=== PATIENT | male | born 1975 | race Caucasian/White ===

== ENCOUNTER 2016-08-29 18:16 | Emergency (ER) | payer SELFPAY ==
[2016-08-29 18:16] VITALS: BMI 24.7
[2016-08-29 19:00] VITALS: TEMP 98
[2016-08-29 19:20] LABS: AUTOMATED BASOPHIL 1.2 % (0-2); AUTOMATED LYMPH 27.3 % (17-44); AUTOMATED MONOCYTE 7.1 % (3-10); AUTOMATED NEUTROPHIL 61.4 % (45-76); MPV 8.5 fL (7.4-10.4)
[2016-08-29 19:23] LABS: LEUKOCYTES/URINE NEG (NEGATIVE); NITRITE/URINE NEG (NEGATIVE); URINE OCCULT BLOOD NEG (NEG/TRACE)
[2016-08-29 19:31] LABS: BLOOD UREA NITROGEN 15 MG/DL (9-20); CALCIUM 9.7 MG/DL (8.4-10.2); CALCULATED OSMOLALITY 280 MOs/Kg (270-290); CHLORIDE 104 mEq/L (98-107); GLUCOSE 101 MG/DL (70-99); SODIUM LEVEL 145 mEq/L (137-146); TOTAL PROTEIN 7.5 G/DL (6.3-8.2)
[2016-08-29 19:38] LABS: PARTIAL THROMB. TIME 22.5 SEC (22-35)
--- NOTE | 2016-08-29 21:40 | DIRPT ---
CLINICAL DATA: Chest pain. Presumed cardiac. Shortness of breath and cough EXAM: PORTABLE CHEST 1 VIEW COMPARISON: PA and lateral views 08/07/2016 FINDINGS: Hyperinflation and emphysematous change with chain sutures in both lung apices. Scattered regions of scarring bilaterally. Small right pleural effusion persists, and decreased left pleural effusion. Cardiomediastinal contours are unchanged, heart is normal in size. No pulmonary edema, confluent airspace disease, or pneumothorax. No acute osseous abnormalities. IMPRESSION: 1. Persistent right pleural effusion. Diminished left pleural effusion. 2. Emphysema with multifocal scarring. Electronically Signed By: Megan Anand M.D. On: 08/29/2016 21:37
[2016-08-29] MEDS ORDERED: ALBUTEROL 6.7 GM MDI INH ONE (21:57)
--- NOTE | 2016-08-29 21:59 | EDPRACDOC ---
- General Information Chief Complaint: Flu-Like Symptoms Stated Complaint: DIFFICULTY BREATHING Time Seen by Provider: 08/29/16 21:49 Information Source: Patient Mode Of Arrival: Car Home Medications: Home Medications Acetaminophen with Codeine [TYLENOL WITH CODEINE; [employer] with Codeine] 5 ml PO Q4-6H PRN #120 ml 08/07/16 Amoxicillin Trihydrate [Amoxicillin] 500 mg PO TID #30 tab 08/07/16 Prednisone [Deltasone, Orasone] 2 tabs PO DAILY #20 tab 08/07/16 Albuterol Sulfate [Proair Hfa] 2 puff INH Q2H PRN #1 inhaler 08/29/16 Benzonatate [Tessalon Perle] 100 mg PO TID PRN #20 capsule 08/29/16 Allergies/Adverse Reactions: Allergies Allergy/AdvReac Type Severity Reaction Status Date / Time No Known Allergies Allergy Verified 08/07/16 19:04 - History of Present Illness HPI: PT PRESENTS WITH PERSISTENT DYSPNEA FOR THE LAST FEW WEEKS SINCE TREATMENT FOR PNEUMONIA AND BRONCHITIS. HE HAS DECREASED HIS SMOKING BUT NOT STOP. Relevant History: Reports: COPD Cough: Reports: Green Rhinorrhea: Reports: Clear SOB Worsens with: Reports: Exertion SOB Improves with: Reports: Rest Associated Signs and symptoms: Reports: Cough, Nasal Symptoms. Denies: Fever, Vomiting ED Past Medical History - History Reviewed Yes Nurses notes reviewed and agree except as marked - Patient Medical History Cardiac History: Reports: Hypertension Psychological History: Denies: Depression - Social Medical History Smoking Status: Heavy tobacco smoker (5 or more cigarettes/day or daily pipe/ cigar) Lives In: Home EDM Review of Systems - Review of Systems ROS Negative Except as Marked: Yes All systems reviewed and were negative except as marked Constitutional: Fatigue, Weakness. negative: Fever Nose: Congestion Respiratory: Cough, Shortness of Breath, Wheezing, Sputum - Physical Exam Constitutional: Alert Oriented to: Time, Person, Place Last recorded Vital Signs: Last Vital Signs Temp 98.0 F 08/29/16 18:56 Pulse 77 08/29/16 21:16 Resp 18 08/29/16 21:16 BP 141/87 08/29/16 21:16 Pulse Ox 97 08/29/16 21:16 Oxygen Pulse Oxygen Saturation 97 O2 Device Room Air Oxygen Flow Rate Fraction of Inspired Oxygen ( FIO2) - HEENT Head: negative: Deformity, Laceration Eye Exam: negative: Conjunctival Injection, Pale Conjunctiva Oropharynx: negative: Membranes Dry Nose: Congestion Neck: negative: Limited ROM - Respiratory/Cardiovascular Respiratory: Normal - CTA. negative: Accessory Muscle Use, Diminished, Tachypnea Cardiovascular: negative: Bradycardia, Tachycardia, Irregular - Musculoskeletal Extremities: Radial Pulse (PALPABLE) - Integumentary Skin: Warm, Dry. negative: Rash - Neurologic Memory Impaired: Normal Motor Function: Normal Mood Description: Anxious, Appropriate Thought: Coherent Perception: Normal ED SOB MDM - Results Result Diagrams: 08/29/16 19:06 08/29/16 19:06 Results: WBC 8.4 xk/uL (3.8-10.8) 08/29/16 19:06 RBC 5.11 xM/uL (4.70-6.10) 08/29/16 19:06 Hgb 15.4 g/dL (14.0-18.0) 08/29/16 19:06 Hct 44.7 % (42-52) 08/29/16 19:06 MCV 87 fL (80-94) 08/29/16 19:06 MCH 30.1 pg (27-32) 08/29/16 19:06 MCHC 34.4 g/dl (33-36) 08/29/16 19:06 RDW 13.3 % (11.5-14.5) 08/29/16 19:06 Plt Count 182 xk/uL (130-400) 08/29/16 19:06 MPV 8.5 fL (7.4-10.4) 08/29/16 19:06 Neut % (Auto) 61.4 % (45-76) 08/29/16 19:06 Lymph % (Auto) 27.3 % (17-44) 08/29/16 19:06 [place] % (Auto) 7.1 % (3-10) 08/29/16 19:06 Eos % (Auto) 3.0 % (0-5) 08/29/16 19:06 Baso % (Auto) 1.2 % (0-2) 08/29/16 19:06 Absolute Neuts (auto) 5.12 xk/uL (1.7-8.2) 08/29/16 19:06 Absolute Lymphs (auto) 2.27 xk/uL (0.65-4.75) 08/29/16 19:06 PT 10.1 SEC (9.2-11.2) 08/29/16 19:06 INR 1.0 08/29/16 19:06 APTT 22.5 SEC (22-35) 08/29/16 19:06 Sodium 145 mEq/L (137-146) 08/29/16 19:06 Potassium 3.8 mEq/L (3.5-5.1) 08/29/16 19:06 Chloride 104 mEq/L (98-107) 08/29/16 19:06 Carbon Dioxide 27 mMOL/L (22-33) 08/29/16 19:06 Anion Gap 18 mEq/L (8-16) H 08/29/16 19:06 BUN 15 MG/DL (9-20) 08/29/16 19:06 Creatinine 0.90 MG/DL (0.66-1.25) 08/29/16 19:06 Estimated GFR (MDRD) > 60 mL/min (>=60) 08/29/16 19:06 Glucose 101 MG/DL (70-99) H 08/29/16 19:06 Calculated Osmolality 280 MOs/Kg (270-290) 08/29/16 19:06 Calcium 9.7 MG/DL (8.4-10.2) 08/29/16 19:06 Total Bilirubin 0.8 MG/DL (0.2-1.3) 08/29/16 19:06 AST 42 IU/L (17-59) 08/29/16 19:06 ALT 53 IU/L (21-72) 08/29/16 19:06 Alkaline Phosphatase 88 IU/L (38-126) 08/29/16 19:06 Troponin I < 0.01 ng/mL (<.04) 08/29/16 19:06 Ifx-[id number]-[id number] Pept 45 pg/mL (0-450) 08/29/16 19:06 Total Protein 7.5 G/DL (6.3-8.2) 08/29/16 19:06 Albumin 4.4 G/DL (3.5-5.0) 08/29/16 19:06 Urine Color Yellow 08/29/16 19:06 Urine Clarity Clear 08/29/16 19:06 Urine pH 5.0 (5.0-8.0) 08/29/16 19:06 Ur Specific [place] 1.030 (1.003-1.035) 08/29/16 19:06 Urine Protein 1+ (NEG/TRACE) H 08/29/16 19:06 Urine Glucose (UA) Neg (NEGATIVE) 08/29/16 19:06 Urine Ketones Neg (NEGATIVE) 08/29/16 19:06 Urine Occult Blood Neg (NEG/TRACE) 08/29/16 19:06 Urine Nitrite Neg (NEGATIVE) 08/29/16 19:06 Urine Bilirubin Neg (NEGATIVE) 08/29/16 19:06 Urine Urobilinogen <2.0 MG/DL (0-1) 08/29/16 19:06 Ur Leukocyte Esterase Neg (NEGATIVE) 08/29/16 19:06 Urine RBC 2-5 (0-2) H 08/29/16 19:06 Urine WBC 2-5 (0-2) H 08/29/16 19:06 Hyaline Casts 0-2 (0-2) 08/29/16 19:06 Urine Mucus Mod (NEG/OCC) H 08/29/16 19:06 Lab Results 08/29/16 08/29/16 08/29/16 19:06 19:06 19:06 WBC 8.4 RBC 5.11 Hgb 15.4 Hct 44.7 MCV 87 MCH 30.1 MCHC 34.4 RDW 13.3 Plt Count 182 MPV 8.5 Neut % (Auto) 61.4 Lymph % (Auto) 27.3 [place] % (Auto) 7.1 Eos % (Auto) 3.0 Baso % (Auto) 1.2 Absolute Neuts (auto) 5.12 Absolute Lymphs (auto) 2.27 PT 10.1 INR 1.0 APTT 22.5 Sodium Potassium Chloride Carbon Dioxide Anion Gap BUN Creatinine Estimated GFR (MDRD) Glucose Calculated Osmolality Calcium Total Bilirubin AST ALT Alkaline Phosphatase Troponin I [id number] Pept Total Protein Albumin Urine Color Yellow Urine Clarity Clear Urine pH 5.0 Ur Specific [place] 1.030 Urine Protein 1+ H Urine Glucose (UA) Neg Urine Ketones Neg Urine Occult Blood Neg Urine Nitrite Neg Urine Bilirubin Neg Urine Urobilinogen <2.0 Ur Leukocyte Esterase Neg Urine RBC 2-5 H Urine WBC 2-5 H Hyaline Casts 0-2 Urine Mucus Mod H 08/29/16 19:06 WBC RBC Hgb Hct MCV MCH MCHC RDW Plt Count MPV Neut % (Auto) Lymph % (Auto) [place] % (Auto) Eos % (Auto) Baso % (Auto) Absolute Neuts (auto) Absolute Lymphs (auto) PT INR APTT Sodium 145 Potassium 3.8 Chloride 104 Carbon Dioxide 27 Anion Gap 18 H BUN 15 Creatinine 0.90 Estimated GFR (MDRD) > 60 Glucose 101 H Calculated Osmolality 280 Calcium 9.7 Total Bilirubin 0.8 AST 42 ALT 53 Alkaline Phosphatase 88 Troponin I < 0.01 [id number]-[id number] Pept 45 Total Protein 7.5 Albumin 4.4 Urine Color Urine Clarity Urine pH Ur Specific [place] Urine Protein Urine Glucose (UA) Urine Ketones Urine Occult Blood Urine Nitrite Urine Bilirubin Urine Urobilinogen Ur Leukocyte Esterase Urine RBC Urine WBC Hyaline Casts Urine Mucus Decision Time to Discharge: 21:59 - Departure Yes I personally saw and evaluated the patient. Disposition: Home Condition: Stable Final Diagnosis: COPD (chronic obstructive pulmonary disease) Qualifiers: COPD type: unspecified COPD Qualified Code(s): J44.9 - Chronic obstructive pulmonary disease, unspecified Instructions: COPD (Chronic Obstructive Pulmonary Disease) (ED) Education/Counseling Given To: Patient, Family Member Education/Counseling Given Regarding: Diagnosis, Treatment, Prognosis, Follow Up Referrals: None,No Provider [Primary Care Provider] - One Week Marty Chery MD [Staff Physician] - As Needed Prescriptions: Albuterol Sulfate [Proair Hfa] 2 puff INH Q2H PRN #1 inhaler PRN Reason: Dyspnea Benzonatate [Tessalon Perle] 100 mg PO TID PRN #20 capsule PRN Reason: Cough Additional Instructions: YOU CAN TAKE GUAIFENESIN AND BENADRYL OVER THE COUNTER TO DECREASE YOUR COUGH AND SPUTUM PRODUCTION.
[2016-08-29 22:24] VITALS: BP 128/81; PULSE 90
== END 2016-08-29 22:20 | disposition home or self-care (01) ==
LOC: ED 18:16
DX: J44.1 Chronic obstructive pulmonary disease with (acute) exacerbation (principal)
CPT/HCPCS: 36415; 71010; 80053; 81001; 83880; 84484; 85025; 85610; 85730; 94640; 99283; J3490